=== PATIENT | female | born 2000 | race African-American/Black ===

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

== ENCOUNTER 2022-03-09 02:45 | Emergency (ER) | payer OTHER ==
[~2022-03-09] VITALS: Ht 167.6 cm; Wt 73.6 kg
[~2022-03-09 02:45] MED LIST: GNP250TA9 PO; ONDA4TAB6 PO; PRENTAB53 PO; RIBO400T PO; ZOLO25TA PO
[2022-03-09 02:47] VITALS: BP 127/76
== END 2022-03-09 07:40 | disposition admitted as inpatient to this hospital (09) ==
LOC: M ED 02:45
DX: O26.893 Other specified pregnancy related conditions, third trimester (principal); M54.50 Low back pain, unspecified; M54.2 Cervicalgia; W10.9XXA Fall (on) (from) unspecified stairs and steps, initial encounter; Z3A.36 36 weeks gestation of pregnancy; Z91.040 Latex allergy status; Z79.810 Long term (current) use of selective estrogen receptor modulators (SERMs)

== ENCOUNTER 2022-03-09 07:33 | Outpatient (CLI) | payer OTHER ==
[~2022-03-09] VITALS: Ht 167.6 cm; Wt 76.4 kg
[2022-03-09 07:49] VITALS: BP 124/74
[2022-03-09] MEDS ORDERED: HOME MED LIST COMPLETE! XX SCH (08:00)
[2022-03-09 09:02] VITALS: BP 126/79
== END 2022-03-09 10:25 | disposition home or self-care (01) ==
LOC: M LDO 07:33
PROVIDERS: ATTEND Obstetrics & Gynecology
DX: O9A.213 Injury, poisoning and certain other consequences of external causes complicating pregnancy, third trimester (principal); T14.8XXA Other injury of unspecified body region, initial encounter; W10.8XXA Fall (on) (from) other stairs and steps, initial encounter; Y92.009 Unspecified place in unspecified non-institutional (private) residence as the place of occurrence of the external cause; Z3A.37 37 weeks gestation of pregnancy; Z91.013 Allergy to seafood
CPT/HCPCS: 59025; G0463

== ENCOUNTER 2022-03-12 10:37 | Outpatient (CLI) | payer OTHER ==
[~2022-03-12] VITALS: Ht 167.6 cm; Wt 75.8 kg
[2022-03-12 11:09] VITALS: BP 138/77
[2022-03-12] MEDS ORDERED: HOME MED LIST COMPLETE! XX SCH (11:30)
[2022-03-12 12:07] VITALS: BP 109/80
[2022-03-12 12:14] LABS: HEMOGLOBIN 13.5 g/dl (12.0-15.5); MEAN CORPUSCULAR HGB CONC 34.6 g/dl (32.0-36.5); MEAN CORPUSCULAR VOLUME 89.4 fl (80.0-96.0); PLATELET COUNT, AUTOMATED 152 10^3/uL (150-450); RED BLOOD COUNT 4.36 10^6/uL (4.00-5.40); WHITE BLOOD COUNT 8.8 10^3/uL (4.0-10.0)
[2022-03-12] MEDS ORDERED: ACET325C5 PO (12:22)
[2022-03-12 12:27] VITALS: BP 125/71
[2022-03-12 12:50] LABS: URIC ACID 4.4 MG/DL (3.1-7.8)
[2022-03-12 12:52] LABS: ALT/SGPT 12 U/L (7.0-40); BILIRUBIN,TOTAL 0.5 MG/DL (0.3-1.2); CREATININE FOR GFR 0.51 MG/DL (0.55-1.30); LDH LACTATE DEHYDROGENASE 193 U/L (120-246)
[2022-03-12 12:58] LABS: CREATININE,RANDOM URINE 50.7 MG/DL
[2022-03-12 13:24] VITALS: BP 128/72
[2022-03-12] MEDS ORDERED: GNP250TA9 PO (13:26)
== END 2022-03-12 14:00 | disposition home or self-care (01) ==
LOC: M LDO 10:37 → M LDI 10:37 → UNDOADMIN 10:37 → M LDO 14:00 → EDSTATUS 14:21
PROVIDERS: ATTEND Advanced Practice Midwife
DX: O26.893 Other specified pregnancy related conditions, third trimester (principal); R51.9 Headache, unspecified; Z3A.37 37 weeks gestation of pregnancy; Z91.013 Allergy to seafood
CPT/HCPCS: 59025; 82247; 82565; 82570; 83615; 84156; 84450; 84460; 84550; 85027; 86780; 86850; 86900; 86901; G0378; G0463

== ENCOUNTER 2022-03-21 10:59 | Inpatient (IN) | payer OTHER ==
[2022-03-21] VITALS (8 sets, daily range): BP systolic 109–141; BP diastolic 56–85
[~2022-03-21] VITALS: Ht 167.6 cm; Wt 76.8 kg
[~2022-03-21 10:59] MED LIST changes: +ACET325C5 PO
[2022-03-21] MEDS ORDERED: OXYTOCIN DRIP 30 UNITS in IV 1 EA IV PRN ×4 (11:05)
[2022-03-21] MEDS ORDERED: CARBOPROST TROMETHAMINE 250 MCG/ML AMP IM PRN (11:05)
[2022-03-21] MEDS ORDERED: TRANEXAMIC ACID INJection 1,000 MG in NS 100 ML IV PRN (11:05)
[2022-03-21] MEDS ORDERED: HOME MED LIST COMPLETE! XX SCH (11:30)
[2022-03-21] MEDS ORDERED: miSOPROStol 50MCG 1/2 TABLET SL ONE (12:05)
[2022-03-21 12:12] LABS: HEMOGLOBIN 13.9 g/dl (12.0-15.5); MEAN CORPUSCULAR HEMOGLOBIN 30.1 pg (27.0-33.0); MEAN CORPUSCULAR HGB CONC 33.9 g/dl (32.0-36.5); MEAN CORPUSCULAR VOLUME 88.7 fl (80.0-96.0); PLATELET COUNT, AUTOMATED 143 10^3/uL (150-450); RED BLOOD COUNT 4.62 10^6/uL (4.00-5.40); WHITE BLOOD COUNT 9.7 10^3/uL (4.0-10.0)
[2022-03-21 12:37] LABS: URIC ACID 4.9 MG/DL (3.1-7.8)
[2022-03-21 12:39] LABS: LDH LACTATE DEHYDROGENASE 210 U/L (120-246)
[2022-03-21 12:40] LABS: ALT/SGPT 13 U/L (7.0-40); AST/SGOT 20 U/L (<34); BILIRUBIN,TOTAL 0.6 MG/DL (0.3-1.2); CREATININE FOR GFR 0.52 MG/DL (0.55-1.30); CREATININE,RANDOM URINE 80.6 MG/DL
[2022-03-21] MEDS ORDERED: OXYTOCIN DRIP 30 UNITS in IV 1 EA IV SCH (17:45)
[2022-03-21] MEDS: LR 1,000 ML IV SCH (19:05)
[2022-03-22] VITALS (43 sets, daily range): BP systolic 97–156; BP diastolic 56–95
[2022-03-22] MEDS: LR 1,000 ML IV SCH ×4 (03:05→14:44)
[2022-03-22] MEDS ORDERED: EPIDURAL/PCA KEYS XX PRN (14:00)
[2022-03-22] MEDS ORDERED: FENTANYL/ROPIVACAINE/NACL BAG 100 ML EPIDURAL SCH (14:00)
[2022-03-22] MEDS ORDERED: LR 500 ML IV PRN (14:00)
[2022-03-22] MEDS ORDERED: NALOXONE INJ 0.4MG/1ML VIAL IV PRN (14:00)
[2022-03-22] MEDS ORDERED: ONDANSETRON 4MG 2ML VIAL IV PRN (14:00)
[2022-03-22] MEDS ORDERED: ePHEDrine SULFATE 25 MG/5 ML(5MG/ML) SYRINGE IVP PRN (14:00)
[2022-03-22] MEDS ORDERED: diphenhydrAMINE 50MG/ML VIAL IV PRN (14:00)
[2022-03-22] MEDS ORDERED: IBUPROFEN 600MG TAB PO PRN (19:15)
[2022-03-22] MEDS ORDERED: RHOGAM 300 MCG (1500 IU) INJ (J2790) IM SCH (19:15)
[2022-03-22] MEDS ORDERED: ANUSOL HC CREAM 30GM TOP PRN (19:15)
[2022-03-22] MEDS ORDERED: METHYLERGONOVINE MALEATE 0.2 MG TAB PO PRN (19:15)
[2022-03-22] MEDS ORDERED: LR 1,000 ML IV SCH (19:15)
[2022-03-22] MEDS ORDERED: DOCUSATE SODIUM 100MG CAPSULE PO PRN (19:15)
[2022-03-22] MEDS ORDERED: OXYTOCIN DRIP 30 UNITS in IV 1 EA IV SCH (19:15)
[2022-03-22] MEDS ORDERED: ACETAMINOPHEN TAB 650MG DOSE (2X325MG) PO PRN (19:15)
[2022-03-22] MEDS ORDERED: DIBUCAINE 1% OINTMENT 30GM TOP PRN (19:15)
[2022-03-22] MEDS: IBUPROFEN 800 MG TAB PO PRN (21:09)
[2022-03-22] MEDS: ACETAMINOPHEN 500 MG TAB PO PRN (21:09)
[2022-03-22] MEDS ORDERED: ONDANSETRON 4MG TAB PO ONE (23:05)
[2022-03-23 06:00] VITALS: BP 121/65
[2022-03-23 06:42] LABS: HEMATOCRIT 36.4 % (36.0-47.0); HEMOGLOBIN 12.3 g/dl (12.0-15.5); MEAN CORPUSCULAR HEMOGLOBIN 30.8 pg (27.0-33.0); MEAN CORPUSCULAR HGB CONC 33.8 g/dl (32.0-36.5); MEAN CORPUSCULAR VOLUME 91.2 fl (80.0-96.0); PLATELET COUNT, AUTOMATED 119 10^3/uL (150-450); RED BLOOD COUNT 3.99 10^6/uL (4.00-5.40); WHITE BLOOD COUNT 15.4 10^3/uL (4.0-10.0)
[2022-03-23] MEDS: PRENATAL VITAMINS CHEWABLE TABLET PO SCH (08:31)
[2022-03-23] MEDS: IBUPROFEN 800 MG TAB PO PRN (11:11)
[2022-03-23] MEDS: ACETAMINOPHEN 500 MG TAB PO PRN (15:38)
[2022-03-23 18:00] VITALS: BP 116/68
[2022-03-24 06:00] VITALS: BP 132/66
[2022-03-24] MEDS: IBUPROFEN 800 MG TAB PO PRN (07:32)
[2022-03-24] MEDS: PRENATAL VITAMINS CHEWABLE TABLET PO SCH (07:32)
[2022-03-24] MEDS ORDERED: MEASLES,MUMPS,RUBELLA VACCINE INJ (MMR-II) (90707) SC.IMMUN ONE (09:00)
[2022-03-24] MEDS ORDERED: ACET1TAB55 PO (09:48)
[2022-03-24] MEDS ORDERED: IBUP-1022 PO (09:48)
[2022-03-24] MEDS ORDERED: COLA100C5 PO (09:48)
== END 2022-03-24 11:05 | disposition home or self-care (01) | DRG 806 ==
LOC: M LDI 10:59 → M OBS 03-22 21:55
PROVIDERS: ADMIT Advanced Practice Midwife; ATTEND Advanced Practice Midwife
PROC: 3E0P7GC Introduction of Other Therapeutic Substance into Female Reproductive, Via Natural or Artificial Opening (ICD-10-PCS; 2022-03-21)
PROC: 10E0XZZ Delivery of Products of Conception, External Approach (ICD-10-PCS; principal; 2022-03-22)
DX: O13.4 Gestational [pregnancy-induced] hypertension without significant proteinuria, complicating childbirth (principal); Z37.0 Single live birth; O99.354 Diseases of the nervous system complicating childbirth; Z3A.38 38 weeks gestation of pregnancy; G43.909 Migraine, unspecified, not intractable, without status migrainosus; O70.0 First degree perineal laceration during delivery

== ENCOUNTER 2022-08-08 09:34 | Inpatient (IN) | payer OTHER ==
[~2022-08-08] VITALS: Ht 167.6 cm; Wt 65.0 kg
[~2022-08-08 09:34] MED LIST changes: +ACET1TAB55 PO; +COLA100C5 PO; +IBUP-1022 PO
[2022-08-08] MEDS ORDERED: IBUPROFEN 400MG TAB PO PRN ×2 (10:15→15:15)
[2022-08-08 10:46] LABS: HEMATOCRIT 41.6 % (36.0-47.0); HEMOGLOBIN 14.1 g/dl (12.0-15.5); MEAN CORPUSCULAR HEMOGLOBIN 31.1 pg (27.0-33.0); MEAN CORPUSCULAR HGB CONC 33.9 g/dl (32.0-36.5); MEAN CORPUSCULAR VOLUME 91.6 fl (80.0-96.0); PLATELET COUNT, AUTOMATED 214 10^3/uL (150-450); RED BLOOD COUNT 4.54 10^6/uL (4.00-5.40); WHITE BLOOD COUNT 13.4 10^3/uL (4.0-10.0)
[2022-08-08 11:03] LABS: ETHYL ALCOHOL (ETHANOL) < 0.003 % (0.000-0.010)
[2022-08-08 11:05] LABS: ACETAMINOPHEN LEVEL < 2.0 UG/ML (10.0-20.0); ALBUMIN 3.9 G/DL (3.2-5.2); ALKALINE PHOSPHATASE 107 U/L (46-116); ALT/SGPT 20 U/L (7.0-40); AST/SGOT 21 U/L (<34); BILIRUBIN,DIRECT 0.2 MG/DL (<0.4); BILIRUBIN,TOTAL 0.5 MG/DL (0.3-1.2); BLOOD UREA NITROGEN 10 MG/DL (9-23); CALCIUM LEVEL 9.6 MG/DL (8.5-10.1); CARBON DIOXIDE LEVEL 27 MMOL/L (20-31); CHLORIDE LEVEL 106 MMOL/L (98-107); CREATININE FOR GFR 0.63 MG/DL (0.55-1.30); GLUCOSE, FASTING 87 MG/DL (60-100); POTASSIUM SERUM 4.2 MMOL/L (3.5-5.1); SALICYLATE LEVEL < 3.0 MG/DL (<30); SODIUM LEVEL 137 MMOL/L (136-145); TOTAL PROTEIN 7.4 G/DL (5.7-8.2)
[2022-08-08 11:09] LABS: THYROID STIMULATING HORMONE 0.429 uIU/ML (0.48-4.17)
[2022-08-08 11:13] LABS: AMPHETAMINES LEVEL URINE NEGATIVE (NEGATIVE); BARBITURATES URINE NEGATIVE (NEGATIVE); COCAINE METABOLITE URINE NEGATIVE (NEGATIVE); HCG, SERUM QUALITATIVE NEGATIVE (NEGATIVE); METHADONE URINE NEGATIVE (NEGATIVE)
[2022-08-08 11:14] LABS: BENZODIAZEPINES URINE POSITIVE (NEGATIVE); CANNABINOIDS URINE NEGATIVE (NEGATIVE); OPIATES URINE NEGATIVE (NEGATIVE); PHENCYCLIDINE URINE NEGATIVE (NEGATIVE)
[2022-08-08] MEDS ORDERED: ACETAMINOPHEN TAB 650MG DOSE (2X325MG) PO PRN (15:15)
[2022-08-08] MEDS ORDERED: MAALOX 30 ML SUSP *UDC PO PRN (15:15)
[2022-08-08] MEDS ORDERED: MOM 30ML SUSPENSION UDC PO PRN (15:15)
[2022-08-08] MEDS: NICOTINE 21MG/24HR 1 EA TRANSDERMAL TD SCH (16:07)
[2022-08-08 16:29] VITALS: BP 125/68
[2022-08-08] MEDS ORDERED: ESCITALOPRAM OXALATE 5MG TABLET (LEXAPRO) PO SCH ×2 (21:00)
[2022-08-08] MEDS: traZODone 50 MG TAB PO PRN (21:16)
[2022-08-08] MEDS ORDERED: MAGIC MOUTHWASH SUSPENSION BTL SS PRN (22:15)
[2022-08-09 06:05] VITALS: BP 99/52
[2022-08-09] MEDS ORDERED: ESCITALOPRAM OXALATE 5MG TABLET (LEXAPRO) PO SCH (09:00)
[2022-08-09] MEDS: NICOTINE 21MG/24HR 1 EA TRANSDERMAL TD SCH (09:26)
[2022-08-09] MEDS ORDERED: IBUPROFEN 400MG TAB PO PRN (14:10)
[2022-08-09 14:35] LABS: FREE T4 0.94 NG/DL (0.83-1.43)
[2022-08-09] MEDS: IBUPROFEN 800 MG TAB PO PRN (17:08)
[2022-08-09 17:42] VITALS: BP 142/87
[2022-08-09] MEDS: ESCITALOPRAM OXALATE 10 MG TAB (LEXAPRO) PO SCH (21:08)
[2022-08-09] MEDS: traZODone 50 MG TAB PO PRN (21:09)
[2022-08-10] MEDS: IBUPROFEN 800 MG TAB PO PRN ×2 (06:32→20:22)
[2022-08-10 06:40] VITALS: BP 117/57
[2022-08-10] MEDS: NICOTINE 21MG/24HR 1 EA TRANSDERMAL TD SCH (08:15)
[2022-08-10 16:11] VITALS: BP 121/66
[2022-08-10] MEDS: ESCITALOPRAM OXALATE 10 MG TAB (LEXAPRO) PO SCH (20:22)
[2022-08-11 06:23] VITALS: BP 122/60
[2022-08-11] MEDS: NICOTINE 21MG/24HR 1 EA TRANSDERMAL TD SCH (08:13)
[2022-08-11] MEDS: busPIRone 5 MG TAB PO SCH ×2 (09:01→21:27)
[2022-08-11] MEDS ORDERED: PILL CUTTER 1 EACH XX PRN (09:20)
[2022-08-11 16:09] VITALS: BP 110/59
[2022-08-11] MEDS: ESCITALOPRAM OXALATE 10 MG TAB (LEXAPRO) PO SCH (21:28)
[2022-08-12 06:10] VITALS: BP 138/71
[2022-08-12] MEDS: NICOTINE 21MG/24HR 1 EA TRANSDERMAL TD SCH (09:20)
[2022-08-12] MEDS: busPIRone 5 MG TAB PO SCH ×2 (09:20→21:11)
[2022-08-12 15:40] VITALS: BP_SYST 131; BP_SYST 140; BP_DIAS 78; BP_DIAS 85
[2022-08-12] MEDS: ESCITALOPRAM OXALATE 10 MG TAB (LEXAPRO) PO SCH (21:11)
[2022-08-12] MEDS: traZODone 50 MG TAB PO PRN (21:14)
[2022-08-13 06:12] VITALS: BP 107/58
[2022-08-13] MEDS: busPIRone 5 MG TAB PO SCH (08:58)
[2022-08-13] MEDS: NICOTINE 21MG/24HR 1 EA TRANSDERMAL TD SCH (09:00)
[2022-08-13] MEDS ORDERED: TRAZ-252 PO (10:20)
[2022-08-13] MEDS ORDERED: LEXA1TAB PO (10:20)
[2022-08-13] MEDS ORDERED: BUSP5TA PO (10:20)
[2022-08-13] MEDS ORDERED: ABIL1TAB11 PO (10:20)
== END 2022-08-13 11:40 | disposition home or self-care (01) | DRG 881 ==
LOC: M ED 09:34 → EDBD 09:34 → M ED INP 15:12 → M PSY 16:26
PROVIDERS: ADMIT Psychiatry & Neurology Psychiatry; ATTEND Psychiatry & Neurology Psychiatry
DX: F32.9 Major depressive disorder, single episode, unspecified (principal); R45.851 Suicidal ideations; F41.9 Anxiety disorder, unspecified; F17.200 Nicotine dependence, unspecified, uncomplicated; F12.90 Cannabis use, unspecified, uncomplicated; Z91.013 Allergy to seafood; Z79.899 Other long term (current) drug therapy; G43.909 Migraine, unspecified, not intractable, without status migrainosus

== ENCOUNTER 2022-08-20 06:27 | Emergency (ER) | payer OTHER ==
[~2022-08-20] VITALS: Ht 167.6 cm; Wt 67.3 kg
[~2022-08-20 06:27] MED LIST changes: +ABIL1TAB11 PO; +BUSP5TA PO; +LEXA1TAB PO; +TRAZ-252 PO
[2022-08-20 08:39] VITALS: BP 115/59
== END 2022-08-20 08:40 | disposition home or self-care (01) ==
LOC: M ED 06:27
DX: R55 Syncope and collapse (principal); I95.1 Orthostatic hypotension; I10 Essential (primary) hypertension; F31.9 Bipolar disorder, unspecified; F17.200 Nicotine dependence, unspecified, uncomplicated; Z91.013 Allergy to seafood; Z79.811 Long term (current) use of aromatase inhibitors; Z79.899 Other long term (current) drug therapy